=== PATIENT | female | born 1970 | race Caucasian/White ===

== ENCOUNTER 2017-01-23 11:16 | Inpatient (IN) | payer BC ==
[~2017-01-23] VITALS: Ht 170.2 cm; Wt 75.0 kg
--- NOTE | 2017-01-23 11:00 | NUR ---
PT ADMITTED TO FLOOR. C/O ABD PAIN 10/10 AND NAUSEA. PT POSITIONED IN BED. AWAITING ORDERS. R AC IV IN PLACE, DRSG C/D/I. BED IN LOWEST POSITION, SIDE RAILS UP X 2, CALL LIGHT WITHIN REACH.
--- NOTE | 2017-01-23 11:37 | NUR ---
PT MEDICATIONS WERE GIVEN ORDERED FOR PAIN.
[2017-01-23 12:14] LABS: BASOPHILS 0.1 % (0-2); EOSINOPHILS 0.1 % (0-7); HEMATOCRIT 45.9 % (36.0-48.0); HEMOGLOBIN 15.4 g/dL (12-16); IMMATURE GRANULOCYTES 0.2 % (0-5); LYMPHOCYTES 5.7 % (15-50); MCH 31.2 pg (26.0-34.0); MCHC 33.6 g/dL (31.0-37.0); MCV 92.9 fL (80.0-100.0); MONOCYTES 2.1 % (2-11); NEUTROPHILS 91.8 % (40-80); PLATELET COUNT 193 10x3/uL (130-400); RBC 4.94 10x6/uL (4.00-5.40); RDW 12.9 % (11.5-14.5); WBC 16.2 10x3/uL (4.8-10.8)
[2017-01-23 12:26] LABS: ALBUMIN 3.4 g/dL (3.4-5.0); ANION GAP 12.9 mmol/L (8-16); BILIRUBIN - TOTAL 0.37 mg/dL (0.2-1.3); CALCIUM 8.1 mg/dL (8.5-10.1); CARBON DIOXIDE 24.6 mmol/L (21.0-32.0); CREATININE - SERUM 0.9 mg/dL (0.6-1.3); POTASSIUM - SERUM 3.5 mmol/L (3.5-5.1)
[2017-01-23 12:47] VITALS: BP 147/64
--- NOTE | 2017-01-23 16:00 | NUR ---
PT RESTING IN BED, NO COMPLAINTS AT THIS TIME. NO CHANGE FROM SHIFT ASSESSMENT. BED IN LOWEST POSITION, SIDE RAILS UP X 2, CALL LIGHT WITHIN REACH.
[2017-01-23 19:00] VITALS: BP 114/56
--- NOTE | 2017-01-23 19:56 | NUR ---
PT RESTING IN BED. FAMILY AT BEDSIDE. NO COMPLAINTS AT THIS TIME. IV FLUIDS RUNNING ORDERED, DRSG CLEAN, DRY AND INTACT. BED IN LOWEST POSITION, SIDE RAILS UP X 2, CALL LIGHT WITHIN REACH.
[2017-01-24] VITALS: BP 113/64
[2017-01-24 04:00] VITALS: BP 121/69
[2017-01-24 06:06] LABS: BASOPHILS 0.3 % (0-2); EOSINOPHILS 2.1 % (0-7); HEMATOCRIT 38.9 % (36.0-48.0); HEMOGLOBIN 13.2 g/dL (12-16); IMMATURE GRANULOCYTES 0.2 % (0-5); LYMPHOCYTES 28.6 % (15-50); MCH 31.4 pg (26.0-34.0); MCHC 33.9 g/dL (31.0-37.0); MCV 92.6 fL (80.0-100.0); MEAN PLATELET VOLUME 12.7 fL (7.4-10.4); MONOCYTES 6.8 % (2-11); PLATELET COUNT 176 10x3/uL (130-400); RDW 13.3 % (11.5-14.5)
[2017-01-24 06:16] LABS: WBC 10.2 10x3/uL (4.8-10.8)
[2017-01-24 06:33] LABS: ALBUMIN 2.7 g/dL (3.4-5.0); ANION GAP 13.5 mmol/L (8-16); BILIRUBIN - TOTAL 0.38 mg/dL (0.2-1.3); CALCIUM 7.3 mg/dL (8.5-10.1); CARBON DIOXIDE 23.7 mmol/L (21.0-32.0); POTASSIUM - SERUM 3.2 mmol/L (3.5-5.1); PROTEIN - SERUM 5.7 g/dL (6.4-8.2)
--- NOTE | 2017-01-24 07:30 | NUR ---
REPORT RECIEVED, ASSUMED CARE OF PT. PT RESTING, EYES SHUT, EASILY AROUSED. R FOREARM IV FLUIDS INFUSING ORDERED, DRSG C/D/I. BED IN LOWEST POSITION, SIDE RAILS UP X 2, CALL LIGHT WITHIN REACH.
--- NOTE | 2017-01-24 08:29 | NUR ---
Patient Name: STEVEN CASTRO Admission Status: Elective Accout number: [id number] Admission Date: 01-23-2017 : 1970 Admission Diagnosis: Attending: PHILLIP, Current LOS: 1 Anticipated DC Date: 01-26-2017 Planned Disposition: Home Primary Insurance: [employer] [facility] Discharge Planning Comments: CM MET WITH PATIENT REGARDING D/C NEEDS AND PLANS. PATIENT STATED SHE LIVES ALONE AND FAMILY OR A FRIEND WILL DRIVE HER HOME AT DISCHARGE. PATIENT STATED SHE HAS 3 STEPS TO ENTER HER HOME AND NO STAIRS INSIDE. PATIENT STATED SHE IS INDEPENDENT WITH HER CARE AND HAS NO DME AT HOME. PATIENTS PCP IS DR. FISHER AND PH[facility]AC[facility] IS [facility]. PATIENT IS REFUSING HOME HEALTH AT THIS TIME. CM WILL CONTINUE TO FOLLOW PATIENT WITH D/C NEEDS AND PLANS. PCP DR. PHILLIP MONCADAING- [phone] GUADALUPE OLEKSANDR (BROTHER) [phone] Environment Artist: Stacy Brooks Is the patient Alert and Oriented? Yes 0 * How many steps to enter\exit or inside your home? 3 W/RAILS 0 * PCP DR. FISHER 0 * [facility] 0 * Preadmission Environment Home Alone 0 * ADLs Independent 0 * Equipment None 0 * List name and contact numbers for known caregivers / representatives who currently or will assist patient after discharge: GUADALUPE LEGGETT (BROTHER) [phone] * Community resources currently utilized None 0 * Additional services required to return to the preadmission environment? Yes 0 * Can the patient safely return to the preadmission environment? Yes 0 * Has this patient been hospitalized within the prior 30 days at any hospital? No 0 Grand Total: 0
--- NOTE | 2017-01-24 10:15 | NUR ---
PT REQUESTS FOR CT AND BONE SCAN TO BE HELD OFF UNTIL SHE SPEAKS TO A DR. PT WAS CONCERENED STATING "I HAVEN'T TALKED TO THE DOCTOR AND I DON'T KNOW WHY THESE TESTS ARE BEING ORDERED." DR. HORTA NOTIFIED AND SAID OK TO HOLD OFF ON TESTS, HE WILL SEE HER AFTER CLINIC AND HAVE THE TESTS RAN IN THE MORNING. PT NOTIFIED. PT ASKED IF HE WILL WANT THE TEST RAN ANYWAY, I STATED " DR. HORTA SAID THEY WILL BE DONE IN THE MORNING." PT REQUESTS TO HAVE THE TESTS RAN TODAY "I MIGHT WELL IF HE IS GOING TO HAVE THEM DONE ANYWAY." DR. HORTA NOTIFIED AND OK'D FOR PT TO HAVE TEST RAN TODAY. NPO PER NUCLEAR MEDICINE FOR TESTING.
[2017-01-24 11:58] VITALS: BP 121/40
--- NOTE | 2017-01-24 12:00 | NUR ---
PT C/O PAIN AT IV SIGHT. REDNESS AND SWELLING NOTED. IV D/C'D AND RE-SITED TO R UPPER FOREARM. PT TOLERATED WITH MINIMAL DISCOMFORT. IV FLUIDS INFUSING ORDERED. BED IN LOWEST POSITION, SIDE RAILS UP X 2, CALL LIGHT WITHIN REACH.
[2017-01-24 13:38] VITALS: BP 147/64; Ht 170.2 cm; Wt 75.0 kg
[2017-01-24] MEDS ORDERED: HYDROCODONE-APA1 TAB PO (15:54)
--- NOTE | 2017-01-24 18:10 | NUR ---
R FOREARM IV D/C'D CATHETER INTACT. BANDAGE APPLIED. PT TOLERATED WITHOUT COMPLAINT.
--- NOTE | 2017-01-24 18:13 | NUR ---
DISCHARGE INSTRUCTIONS GIVEN TO PT, VERBALIZES UNDERSTANDING. WRITTEN RX FOR HYDROCODONE GIVEN TO PT. ALL PERSONAL BELONGINGS WITH PT. FAMILY WITH PT. ESCORTED TO FRIENDS VEHICLE VIA WHEELCHAIR.
== END 2017-01-24 18:14 | disposition home or self-care (01) | DRG 760 ==
LOC: D.MS
PROVIDERS: Family Medicine Adult Medicine; ADMIT Family Medicine
DX: D25.9 Leiomyoma of uterus, unspecified (principal); C64.2 Malignant neoplasm of left kidney, except renal pelvis; R19.7 Diarrhea, unspecified; E87.6 Hypokalemia; K57.30 Diverticulosis of large intestine without perforation or abscess without bleeding; F17.200 Nicotine dependence, unspecified, uncomplicated

== ENCOUNTER 2018-01-16 11:32 | Emergency (ER) | payer BC ==
[~2018-01-16] VITALS: Ht 170.2 cm; Wt 77.1 kg
[~2018-01-16 11:32] MED LIST: HYDROCODONE-APA1 TAB PO
[2018-01-16 11:44] VITALS: Ht 170.2 cm; Wt 77.1 kg
[2018-01-16 12:24] LABS: BASOPHILS 0.2 % (0-2); EOSINOPHILS 1.3 % (0-7); HEMATOCRIT 45.7 % (36.0-48.0); HEMOGLOBIN 15.8 g/dL (12-16); IMMATURE GRANULOCYTES 0.3 % (0-5); LYMPHOCYTES 17.8 % (15-50); MCH 31.7 pg (26.0-34.0); MCHC 34.6 g/dL (31.0-37.0); MCV 91.6 fL (80.0-100.0); MONOCYTES 5.8 % (2-11); NEUTROPHILS 74.6 % (40-80); PLATELET COUNT 195 10x3/uL (130-400); RBC 4.99 10x6/uL (4.00-5.40); RDW 13.4 % (11.5-14.5); WBC 13.7 10x3/uL (4.8-10.8)
[2018-01-16 12:27] LABS: APPEARANCE CLEAR (CLEAR); BILIRUBIN NEGATIVE (NEGATIVE); COLOR STRAW (YELLOW); GLUCOSE NEGATIVE (NEGATIVE); KETONE NEGATIVE (NEGATIVE); NITRITE NEGATIVE (NEGATIVE); PROTEIN NEGATIVE (NEGATIVE); UROBILINOGEN NORMAL (NORMAL)
[2018-01-16 12:37] LABS: ANION GAP 17.4 mmol/L (8-16); BILIRUBIN - TOTAL 0.45 mg/dL (0.2-1.3); CALCIUM 8.7 mg/dL (8.5-10.1); CARBON DIOXIDE 18.7 mmol/L (21.0-32.0); CREATININE - SERUM 1.3 mg/dL (0.6-1.3); POTASSIUM - SERUM 4.1 mmol/L (3.5-5.1); PROTEIN - SERUM 7.7 g/dL (6.4-8.2)
[2018-01-16] MEDS ORDERED: LEVAQUIN500 MG PO (15:09)
[2018-01-16] MEDS ORDERED: HYDROCODON-ACE1 EAC7 PO (15:09)
[2018-01-16 16:51] VITALS: BP 122/70
== END 2018-01-16 16:51 | disposition home or self-care (01) ==
LOC: D.ER
PROVIDERS: Family Medicine
DX: K57.92 Diverticulitis of intestine, part unspecified, without perforation or abscess without bleeding (principal); N83.201 Unspecified ovarian cyst, right side; R11.2 Nausea with vomiting, unspecified